=== PATIENT | male | born 1960 | race Caucasian/White ===

== ENCOUNTER 2018-12-27 06:47 | Inpatient (IN) | payer OTHER ==
[2018-12-20 14:48] LABS: BASOPHILS % (AUTO) 0.2 % (0-1); EOSINOPHILS # (AUTO) 0.1 X10'3 (0-0.9); EOSINOPHILS % (AUTO) 1.3 % (0-6); LYMPHOCYTES # (AUTO) 1.2 X10'3 (1.1-4.8); MEAN CORPUSCULAR HEMOGLOBIN 31.1 PG (27.0-31.0); MEAN CORPUSCULAR HGB CONC 33.4 % (33.0-36.5); MEAN PLATELET VOLUME 6.6 FL (7.4-10.4); MONOCYTES # (AUTO) 0.6 X10'3 (0-0.9); MONOCYTES % (AUTO) 6.4 % (2-12); NEUTROPHILS # (AUTO) 6.8 X10'3 (1.8-7.7); NEUTROPHILS % (AUTO) 78.1 % (42-75); PRE OP HEMATOCRIT 44.6 % (42.0-52.0); PRE OP HEMOGLOBIN 14.9 g/dL (14.0-17.9); PRE OP PLATELET COUNT 398 X10'3 (140-440); RED CELL DISTRIBUTION WIDTH 14.3 % (11.5-14.5)
[2018-12-20 14:59] LABS: CLARITY,URINE CLOUDY (Clear); COLOR,URINE YELLOW (Yellow); GLUCOSE, URINE NEGATIVE (Neg); KETONES,URINE NEGATIVE (Neg); LEUKOCYTE ESTERASE ,URINE NEGATIVE (Neg); NITRITES, URINE NEGATIVE (Neg); OCCULT BLOOD,URINE NEGATIVE (Neg); PROTEIN,URINE NEGATIVE (Neg); UROBILINOGEN,URINE 0.2 E.U/dL (0.2-1.0)
[2018-12-20 15:00] LABS: PRE OP INR 0.9 INR; PRE OP PROTIME 9.6 SECONDS (9.0-12.0)
[2018-12-20 15:03] LABS: ALBUMIN 3.8 G/DL (3.4-5.0); ALBUMIN/GLOBULIN RATIO 1.1 (1.1-1.5); ALKALINE PHOSPHATASE 62 IU/L (46-116); BLOOD UREA NITROGEN 19 MG/DL (7-18); BUN/CREATININE RATIO 17.9 (5.4-32.0); CHLORIDE 103 MMOL/L (99-107); CREATININE 1.06 MG/DL (0.60-1.10); PRE OP ALT 35 U/L (30-65); PRE OP ANION GAP 8 (8-16); PRE OP AST 16 U/L (10-37); PRE OP BILIRUB, TOTAL 0.2 MG/DL (0.0-1.0); PRE OP GLUCOSE 182 MG/DL (70-104); PRE OP SODIUM 142 MMOL/L (135-145); TOTAL CARBON DIOXIDE 30.6 MMOL/L (24-32); TOTAL PROTEIN 7.3 G/DL (6.4-8.2); eGFR 72 ML/MIN
[2018-12-20 15:03] LABS: UA COLLECTION TYPE CLN CATCH MIDSTREAM
[2018-12-20 15:24] LABS: AMORPHOUS PHOSPHATES 2+; BACTERIA,URINE FEW /HPF (Neg); MUCUS STRANDS FEW /LPF (Neg); RBC,URINE 0-2 /HPF (0-2); SQUAMOUS EPITHELIAL CELL,UR FEW /LPF (FEW); WBC,URINE 0-4 /HPF (0-4)
[~2018-12-27] VITALS: Ht 177.8 cm; Wt 84.0 kg
[2018-12-27] VITALS (19 sets, daily range): BP systolic 78–153; BP diastolic 49–89
[~2018-12-27 06:47] MED LIST: CA C1TAB95 PO; FOLI1TAB16 PO; METH2.5T PO; MULT-933 PO; PRED5TAB PO; famotidine 20mg tablet PO ONE; hydrocortisone sod succ/PF 100mg/2ml inj. IV PRN; ringers solution, lacted 1,000 ML IV SCH
[2018-12-27] MEDS ORDERED: HYDROmorphone 1 mg/ml syringe IV PRN (06:55)
[2018-12-27] MEDS ORDERED: magnesium hydroxide 30ml (MOM) UD suspension PO PRN (06:55)
[2018-12-27] MEDS ORDERED: HYDROmorphone inj. 0.5 MG/0.5 ML DISP.SYRIN IV PRN (06:55)
[2018-12-27] MEDS ORDERED: acetaminophen 325mg tablet PO PRN (06:55)
[2018-12-27] MEDS ORDERED: ondansetron/PF 4mg/2ml inj IV PRN ×3 (06:55→09:30)
[2018-12-27] MEDS ORDERED: diphenhydrAMINE 25mg capsule PO PRN ×2 (06:55)
[2018-12-27] MEDS ORDERED: oxyCODONE/APAP 10/325mg tablet PO PRN ×2 (06:55)
[2018-12-27] MEDS ORDERED: bisacodyl 10mg suppository rectal RC PRN (06:55)
[2018-12-27] MEDS ORDERED: vancomycin 1,000mg inj ONE (07:00)
[2018-12-27] MEDS ORDERED: ketorolac trometh. 30mg/ml inj. ONE (07:00)
[2018-12-27] MEDS ORDERED: oxyCODONE SR 10mg (sust. release) tab -2 tabs (20mg) PO ONE (07:10)
[2018-12-27] MEDS ORDERED: metoclopramide 5 mg/ml inj IV ONE (07:10)
[2018-12-27] MEDS ORDERED: gabapentin 300mg capsule PO ONE (07:10)
[2018-12-27] MEDS ORDERED: celeCOXIB 100mg capsule PO ONE (07:10)
[2018-12-27] MEDS ORDERED: acetaminophen 325mg tablet PO ONE (07:15)
[2018-12-27] MEDS ORDERED: tranexamic acid inj. 1,000 MG in normal saline 100ml IV soln 100 ML IV ONE (07:15)
[2018-12-27] MEDS ORDERED: cefazolin/dext.iso 2gm/100 ML IV ONE (07:20)
[2018-12-27] MEDS ORDERED: vancomycin inj 1,500 MG in normal saline 300ml IV soln IV ONE (07:20)
[2018-12-27] MEDS: predniSONE 5mg tablet PO SCH (08:00)
[2018-12-27] MEDS: multivitamins, therapeutics tablet PO SCH (08:00)
[2018-12-27] MEDS ORDERED: cloNIDine hcl/PF 100mcg/ml inj ONE (08:26)
[2018-12-27] MEDS ORDERED: tetracaine 1% (10mg/ml) pres. free inj. ONE (08:26)
[2018-12-27] MEDS ORDERED: ROPIVAcaine 0.5% (5mg/ml) 30ml vial ONE (08:26)
[2018-12-27] MEDS ORDERED: morphine /PF 1mg/ml 10ml inj. ONE (08:29)
[2018-12-27] MEDS ORDERED: MIDAZolam 1mg/ml 10ml vial ONE (08:29)
[2018-12-27] MEDS ORDERED: ringers solution, lacted 1,000 ML IV SCH (08:44)
[2018-12-27] MEDS ORDERED: enalaprilat dihydrate 2.5mg/2ml vial IV PRN (08:45)
[2018-12-27] MEDS ORDERED: morphine 4 MG/ML inj SYRINge IV PRN ×2 (08:45)
[2018-12-27] MEDS ORDERED: meperidine/PF 25mg/ml syringe IV PRN ×2 (08:45)
[2018-12-27] MEDS ORDERED: hydrALAZINE 20mg/ml inj. IV PRN (08:45)
[2018-12-27] MEDS ORDERED: propofol inj 20 ML IV ONE (08:57)
[2018-12-27] MEDS ORDERED: LIDOcaine 2% (20mg/ml) 5ml vial ONE (08:57)
[2018-12-27] MEDS ORDERED: diphenhydrAMINE 50 mg/ml inj ONE (09:27)
[2018-12-27] MEDS ORDERED: diphenhydrAMINE 50 mg/ml inj IV PRN (09:30)
[2018-12-27] MEDS ORDERED: ROPIVAcaine 0.2%/PF PAIN PUMP 550 ML IJ SCH (09:45)
--- NOTE | 2018-12-27 11:02 | NUR ---
Received from OR via [facility] MYRA FELICIANO , accompanied by Anesthesiologist SUE and report given by Anesthesiolgist. SPINAL LEVEL AT L1 CURRENTLY, DENIES PAIN. + DP TO RIGHT FOOT, KNEE WRAP AND POWDER PACK PRESENT. ON Q PUMP ATTACHED AND LYNNE DRIN IN PLACE. VSS.SCDS DONNED WAS THE JESSICA LEROY. LR RUNNING AT 100 VIA 18G PIV IN LEFT UE. WILL CONTINUE TO ASSESS PATIENT AND TREAT. Addendum: 12/27/18 at 1119 by Rigo Kumar RN, RN Amended: Links added.
--- NOTE | 2018-12-27 12:02 | NUR ---
ALL CRITERIA FOR TRANSFER TO THE FLOOR HAS BEEN ACHIEVED. VSS. BED LOW, CALL LIGHT AND VS. SET IN PLACE. SEE REHMAN PRESENT TO ACCEPT CARE. PATIENT RESTING COMFORTABLY IN BED. BELONGINGS SENT WITH PATIENT. DRESSINGS CDI.FAMILY AT BEDSIDE AND ONE BAG IN ROOM AT BEDSIDE. Addendum: 12/27/18 at 1229 by Rigo Kumar RN, RN Amended: Links added.
--- NOTE | 2018-12-27 12:15 | NUR ---
ASSUMED CARE, RECEIVED REPORT FROM JENIFER CUI. PT A&OX4, FAMILY AT BEDSIDE, REPORTS 0/10 PAIN. POST OP VSS STARTED. RHODA HOANG TURNER MACHINE AT BEDSIDE. ICE CHIPS GIVEN, WILL CONTINUE TO MONITOR.
[2018-12-27] MEDS ORDERED: tranexamic acid inj. 840 MG in normal saline 100ml IV soln 100 ML IV ONE (14:00)
[2018-12-27] MEDS: potassium cl 20mEq in 1/2 NS 1,000 ML IV SCH ×2 (14:50→14:54)
[2018-12-27] MEDS: cefazolin/dext.iso 2gm/100ml 100 ML IV SCH ×2 (17:43→23:52)
--- NOTE | 2018-12-27 18:20 | NUR ---
Problems reprioritized. Patient report given, questions answered & plan of care reviewed with MARIA ANTONIA CUI.
--- NOTE | 2018-12-27 18:30 | NUR ---
Patient in room [facility]TH[facility] 4013. I have received report from SEE Anderson and had the opportunity to ask questions and assume patient care.
--- NOTE | 2018-12-27 20:30 | NUR ---
Pt. [facility] [place] tangled with nursing.
[2018-12-27] MEDS: ascorbic acid 500mg tablet PO SCH (20:57)
[2018-12-27] MEDS: gabapentin 300mg capsule PO SCH (20:57)
[2018-12-27] MEDS ORDERED: sennosides 8.6mg tablet PO SCH (21:00)
[2018-12-28] VITALS: BP 108/60
[2018-12-28] MEDS: potassium cl 20mEq in 1/2 NS 1,000 ML IV SCH ×2 (00:02→04:27)
[2018-12-28 02:00] VITALS: BP 122/72
[2018-12-28 04:00] VITALS: BP 100/58
[2018-12-28] MEDS ORDERED: celeCOXIB 100mg capsule PO ONE (05:30)
[2018-12-28] MEDS ORDERED: vancomycin inj 1,500 MG in normal saline 300ml IV soln IV ONE (05:30)
[2018-12-28] MEDS ORDERED: cefazolin/dext.iso 2gm/100 ML IV ONE (05:30)
[2018-12-28] MEDS ORDERED: metoclopramide 5 mg/ml inj IV ONE (05:30)
[2018-12-28] MEDS ORDERED: gabapentin 300mg capsule PO ONE (05:30)
[2018-12-28] MEDS ORDERED: oxyCODONE SR 10mg (sust. release) tab -2 tabs (20mg) PO ONE (05:30)
[2018-12-28 06:00] VITALS: BP 132/84
[2018-12-28 06:19] LABS: BASOPHILS % (AUTO) 0.2 % (0-1); EOSINOPHILS # (AUTO) 0.2 X10'3 (0-0.9); EOSINOPHILS % (AUTO) 1.3 % (0-6); HEMOGLOBIN 12.7 g/dl (14.0-17.9); LYMPHOCYTES # (AUTO) 1.1 X10'3 (1.1-4.8); MEAN CORPUSCULAR HEMOGLOBIN 31.6 PG (27.0-31.0); MEAN CORPUSCULAR HGB CONC 34.2 g/dL (33.0-36.5); MEAN CORPUSCULAR VOLUME 92.5 FL (78-98); MEAN PLATELET VOLUME 6.8 FL (7.4-10.4); MONOCYTES # (AUTO) 1.2 X10'3 (0-0.9); MONOCYTES % (AUTO) 9.6 % (2-12); NEUTROPHILS # (AUTO) 9.7 X10'3 (1.8-7.7); NEUTROPHILS % (AUTO) 79.9 % (42-75); PLATELET COUNT 332 X10'3 (140-440); RED CELL DISTRIBUTION WIDTH 14.6 % (11.5-14.5); WHITE BLOOD COUNT 12.2 X10'3 (4.5-11.0)
--- NOTE | 2018-12-28 06:19 | NUR ---
Problems reprioritized. Patient report given, questions answered & plan of care reviewed with SEE Anderson.
[2018-12-28 06:20] LABS: ANION GAP 5 (8-16); CHLORIDE 107 MMOL/L (99-107); POTASSIUM 4.5 MMOL/L (3.5-5.1); SODIUM 142 MMOL/L (135-145)
--- NOTE | 2018-12-28 06:20 | NUR ---
Patient in room [facility]TH[facility] 4013. I have received report from MARIA ANTONIA CUI and had the opportunity to ask questions and assume patient care.
[2018-12-28] MEDS: ascorbic acid 500mg tablet PO SCH (07:47)
[2018-12-28] MEDS: multivitamins, therapeutics tablet PO SCH (07:47)
[2018-12-28] MEDS: gabapentin 300mg capsule PO SCH ×2 (07:47→13:57)
[2018-12-28] MEDS: predniSONE 5mg tablet PO SCH (07:47)
[2018-12-28] MEDS ORDERED: ROPIVAcaine inj 250 MG, CloNIDine/PF inj 80 MCG, epiNEPHrine inj 0.5 MG in normal salin... IU ONE (08:00)
[2018-12-28] MEDS ORDERED: aspirin 325mg tablet PO SCH (08:30)
[2018-12-28 10:00] VITALS: BP 134/93
[2018-12-28] MEDS ORDERED: CELE100C98 PO (13:58)
[2018-12-28] MEDS ORDERED: ASPI-1 PO (13:58)
[2018-12-28 14:00] VITALS: BP 147/85
--- NOTE | 2018-12-28 15:00 | NUR ---
PATIENT DISCHARGED SAFELY WITH DAUGHTER. PT ACKNOWLEDGES UNDERSTANDING OF DC INSTRUCTIONS. HOME WITH ON-Q PUMP AND INSTRUCTIONS PROVIDED.
--- NOTE | 2018-12-28 15:24 | NUR ---
Joint replacement consult: Pt seen by MITZY for written/verbal high protein ed. RD reviewed high protein needs for wound healing, immune strength, high protein foods, and protein supplementation options. RD contact information provided in case of further questions. Pt declines additional proteins at this time. Addendum: 12/28/18 at [address] Amended: Links added.
[2018-12-28] MEDS ORDERED: celeCOXIB 100mg capsule PO SCH (20:00)
== END 2018-12-28 15:00 | disposition home or self-care (01) | DRG 470 ==
LOC: PAS IN 06:47 → EDSTATUS 10:00 → ORTHO 4S 12:10
PROVIDERS: ADMIT Orthopaedic Surgery; ATTEND Nurse Practitioner Family
PROC: 0SRC0J9 Replacement of Right Knee Joint with Synthetic Substitute, Cemented, Open Approach (ICD-10-PCS; 2018-12-27)
PROC: 3E0T3BZ Introduction of Anesthetic Agent into Peripheral Nerves and Plexi, Percutaneous Approach (ICD-10-PCS; principal; 2018-12-27 08:42)
DX: M17.11 Unilateral primary osteoarthritis, right knee (principal); M06.9 Rheumatoid arthritis, unspecified; D50.0 Iron deficiency anemia secondary to blood loss (chronic)
CPT/HCPCS: 36415; 71046; 73560; 80051; 80053; 81001; 82948; 85025; 85610; 85730; 86885; 86900; 86901; 87070; 97110; 97116; 97162; 97530; A6455; A7000; C1713; C1758; C1776; G0378; J0690; J0735; J1200; J1720; J1885; J2001; J2250; J2274; J2405; J2704; J2765; J2795; J3370; J7030; J7120; J7512